=== PATIENT | female | born 1940 | race Caucasian/White ===

== ENCOUNTER 2023-03-03 06:42 | Day surgery (SDC) | payer SELFPAY ==
[2023-02-26 11:21] VITALS: BMI 25.4
[2023-03-03] MEDS ORDERED: LIDOCAINE HCL/PF 2% SDV 5ML VIAL ONE (08:37)
[2023-03-03] MEDS ORDERED: ceFAZolin SODIUM 1 GM VIAL ONE ×2 (08:37→09:14)
[2023-03-03] MEDS ORDERED: MIDAZOLAM HCL 2 MG/2 ML SINGLE DOSE VIAL ONE (08:38)
[2023-03-03] MEDS ORDERED: PROPOFOL 20 ML ONE (08:38)
[2023-03-03] MEDS ORDERED: ERYTHROMYCIN 0.5% OPHTHALMIC OINTMENT 3.5 GM TUBE ONE (09:14)
[2023-03-03] MEDS ORDERED: TETRACAINE 0.5% OPHTH SOLN 2 ML BOTTLE ONE (09:14)
[2023-03-03] MEDS ORDERED: POVIDONE-IODINE 5% OPHTHALMIC PREP 30 ML SOLUTION ONE (09:14)
[2023-03-03] MEDS ORDERED: LIDOCAINE 1%-EPI 1:100,000 30 ML MDV IJ ONE (09:15)
[2023-03-03] MEDS ORDERED: GUM MASTIC/STORAX/MSAL/ALCOHOL 1 DRP DROPSBTL MC ONE (09:15)
[2023-03-03] MEDS ORDERED: ONDANSETRON 4 MG/2 ML VIAL IVPUSH PRN (12:21)
[2023-03-03] MEDS ORDERED: oxyCODONE HCL 5 MG TABLET PO PRN (12:21)
[2023-03-03] MEDS ORDERED: LACTATED RINGERS SOLUTION 1,000 ML IV SCH (12:30)
[2023-03-03 13:25] VITALS: TEMP 97.7
[2023-03-03 15:36] VITALS: PULSE 74; RESP 18
[2023-03-03 15:37] VITALS: BP 141/74
== END 2023-03-03 14:30 | disposition home or self-care (01) ==
LOC: FASU 06:42
PROVIDERS: ATTEND Ophthalmology
CPT/HCPCS: 94760